=== PATIENT | male | born 1970 | race Caucasian/White ===

== ENCOUNTER 2019-03-12 13:53 | Emergency (ER) | payer OTHER ==
[2019-03-12] MEDS ORDERED: DUL20 PO (14:01)
[2019-03-12] MEDS ORDERED: BUPR-472 PO (14:01)
--- NOTE | 2019-03-12 14:02 | ER Report ---
History and Physical Time Seen By MD: 14:02 HPI/ROS CHIEF COMPLAINT: Right ankle pain HISTORY OF PRESENT ILLNESS: 48-year-old male patient presents to emergency room with complaint of right ankle pain. Patient states he works for the [employer]. He was working on Thursday and twisted his ankle. He states since then he's been having worsening pain. Patient states he is not having numbness or tingling. He states the pain has become so bad that he is having difficult time driving. He denies any fevers, chills, nausea, vomiting or diarrhea. Patient states he's been taking Tylenol and ibuprofen with no improvement. He states that he is concerned about something being wrong with the ankle as it has not gotten bet ter. REVIEW OF SYSTEMS: Respiratory: No cough, no dyspnea. Cardiovascular: No chest pain, no palpitations. Gastrointestinal: No vomiting, no abdominal pain. Musculoskeletal: As noted above Allergies: Coded Allergies: No Known Drug Allergies (Unverified , 03/12/19) Home Meds Active Scripts Ketorolac Tromethamine (KETOROLAC TROMETHAMINE) 10 Mg Tab, 10 MG PO Q6H, #20 TAB Prov:STACIE CAMPOS CUSTOMER ORDERS CLERK 03/12/19 Reported Medications Duloxetine Hcl (CYMBALTA) 20 Mg Capcr, 20 MG PO QDAY, #5 CAP 03/12/19 Bupropion Hcl (WELLBUTRIN XL) 150 Mg Tab.er.24h, 150 MG PO QDAY, TAB 03/12/19 Past Medical/Surgical History Patient has a past medical history of asthma, back pain, substance abuse, depression, anxiety. Patient has a surgical history of appendectomy, back fusion, gastric bypass. Reviewed Nurses Notes: Yes Constitutional Vital Sign - Last 24 Hours 03/12/19 03/12/19 03/12/19 13:59 14:01 15:00 Temp 98.7 Pulse 84 71 Resp 20 B/P (MAP) 142/87 142/87 (105) 138/91 (107) Pulse Ox 94 92 O2 Delivery Room Air Physical Exam General Appearance: The patient is alert, has no immediate need for airway protection and no current signs of toxicity. Respiratory: Chest is non tender, lungs are clear to auscultation. Cardiac: regular rate and rhythm Gastrointestinal: Abdomen is soft and non tender, no masses, bowel sounds normal. Musculoskeletal: Neck: Neck is supple and non tender. Extremities have full range of motion and are non tender. Patient has tend erness to the medial aspect of the right ankle. There is no obvious swelling or deformity noted. Skin: No rashes or lesions. DIFFERENTIAL DIAGNOSIS: After history and physical exam differential diagnosis was considered for contusion, fracture, sprain. Medical Decision Making EKG/Imaging Imaging 3 views right ankle INDICATION: Right ankle pain after injury. COMPARISON: None Available FINDINGS: 3 views of the right ankle. No acute fracture or dislocation. Minimal degenerative changes. The medial malleolus does show a well-circumscribed lucency without cortical thickening or soft tissue density. This is likely benign such as a bone cyst.. No other bony lesions. Soft tissues show edema. No radiopaque foreign body. IMPRESSION: 1. No acute osseous abnormality of the right ankle 2. A well-circumscribed lucency in the medial malleolus. This is likely benign such as a bone cyst. However as there are no prior exams, suggest a follow-up 6 month x-ray to reevaluate. Report Dictated By: Hosea Guajardo at 03/12/2019 2:53 PM Report E-Signed By: Hosea Guajardo at 03/12/2019 3:02 PM FOOT 3 VIEWS RIGHT Indication: Right foot pain after injury. Comparison: None Available Findings: 3 views of the right foot were obtained. No fracture or dislocation. Mild degenerative change seen in the midfoot and the first MTP joint including joint space narrowing and small osteophytes. No other significant degenerative changes. No aggressive bony lesions. No periosteal abnormality. Soft tissues show mild edema. No radiopaque foreign body. IMPRESSION: 1.No acute osseous abnormality of the right foot 2. Mild degenerative changes. Report Dictated By: Hosea Guajardo at 03/12/2019 2:58 PM Report E-Signed By: Hosea Guajardo at 03/12/2019 3:01 PM ED Course/Re-evaluation ED Course Patient was admitted to exam room, history and physical were obtained. Differential diagnoses were considered. X-rays done of the right foot as well as right ankle. The results were negative. Patient did receive a dose of 30 mg of Toradol IM. Patient states he still has some persistent pain. We will go ahead and discharge him home at this time. He is to follow-up with his primary care provider the next week if he has persistent pain. He is to ice his ankle to 3 times a day for 10-15 minutes. Discussed findings with patient and he verbalized understanding and agreement with plan. Decision to Disposition Date: Mar 12, 2019 Decision to Disposition Time: 15:11 Depart Departure Latest Vital Signs Vital Signs Date Time Temp Pulse Resp B/P (MAP) Pulse Ox O2 Delivery O2 Flow Rate FiO2 03/12/19 15:00 71 138/91 (107) 92 03/12/19 13:59 98.7 20 Room Air Impression: Primary Impression: SPRAIN OF UNSPECIFIED LIGAMENT OF RIGHT ANKLE, INIT ENCNTR Condition: Improved Disposition: HOME OR SELF-CARE New Scripts Ketorolac Tromethamine (KETOROLAC TROMETHAMINE) 10 Mg Tab 10 MG PO Q6H, #20 TAB Prov: STACIE CAMPOS 03/12/19 Patient Instructions: Ankle Sprain (ED) Additional Instructions: Limit activity by pain. Ice the ankle 2-3 times a day for 10-15 minutes. Take Tylenol as needed for pain. Return to the ER if condition worsens. Follow up with your primary care provider in the next week if pain persists. Wear the minerva wrap to help with the pain. STACIE CAMPOS Mar 12, 2019 14:02
[2019-03-12] MEDS ORDERED: KETOROLAC 60 MG/2 ML VIAL IM ONE (14:15)
[2019-03-12 15:00] VITALS: BP 138/91
--- NOTE | 2019-03-12 15:05 | RADIOLOGY IMAGING REPORT ---
FACILITY: [facility] PATIENT NAME: Bradley Gonzalez : 1970 MR: [id number] V: [id number] EXAM DATE: ORDERING PHYSICIAN: STACIE CAMPOS TECHNOLOGIST: Location: [facility] - [place] Patient: Bradley Gonzalez : 1970 Visit/Account:[id number] Date of Sevice: 03/12/2019 3 views right ankle INDICATION: Right ankle pain after injury. COMPARISON: None Available FINDINGS: 3 views of the right ankle. No acute fracture or dislocation. Minimal degenerative changes. The media l malleolus does show a well-circumscribed lucency without cortical thickening or soft tissue density . This is likely benign such as a bone cyst.. No other bony lesions. Soft tissues show edema. No radi opaque foreign body. IMPRESSION: 1. No acute osseous abnormality of the right ankle 2. A well-circumscribed lucency in the medial malleolus. This is likely benign such as a bone cyst. H owever as there are no prior exams, suggest a follow-up 6 month x-ray to reevaluate. Report Dictated By: Hosea Guajardo at 03/12/2019 2:53 PM Report E-Signed By: Hosea Guajardo at 03/12/2019 3:02 PM WSN:[id number]
--- NOTE | 2019-03-12 15:06 | RADIOLOGY IMAGING REPORT ---
FACILITY: [facility] - [place] PATIENT NAME: Bradley Gonzalez : 1970 MR: [id number] V: [id number] EXAM DATE: ORDERING PHYSICIAN: STACIE CAMPOS TECHNOLOGIST: Location: [facility] [place] Patient: Bradley Gonzalez : 1970 Visit/Account:[id number] Date of Sevice: 03/12/2019 FOOT 3 VIEWS RIGHT Indication: Right foot pain after injury. Comparison: None Available Findings: 3 views of the right foot were obtained. No fracture or dislocation. Mild degenerative change seen in the midfoot and the first MTP joint incl uding joint space narrowing and small osteophytes. No other significant degenerative changes. No aggr essive bony lesions. No periosteal abnormality. Soft tissues show mild edema. No radiopaque foreign b jerome. IMPRESSION: 1.No acute osseous abnormality of the right foot 2. Mild degenerative changes. Report Dictated By: Hosea Guajardo at 03/12/2019 2:58 PM Report E-Signed By: Hosea Guajardo at 03/12/2019 3:01 PM WSN:[id number]
[2019-03-12] MEDS ORDERED: KET10 PO (15:12)
== END 2019-03-12 15:24 | disposition home or self-care (01) ==
LOC: ER 14:02
DX: S93.401A Sprain of unspecified ligament of right ankle, initial encounter (principal)
CPT/HCPCS: 73610; 73630; 96372; 99284; J1885